=== PATIENT | male | born 1975 | race Two or more races ===

== ENCOUNTER 2019-03-25 17:50 | Emergency (ER) | payer OTHER ==
[~2019-03-25] VITALS: Ht 172.7 cm; Wt 77.1 kg
[2019-03-25] MEDS ORDERED: OXYMETAZOLINE HCL NASAL SPRAY 30 ML BOTTLE NS ONE ×2 (18:12→18:30)
--- NOTE | 2019-03-25 18:24 | NUR ---
Patient awake alert noted nose bleeding ,suctioned as needed ,Afrin adminstered continue to monitor
[2019-03-25] MEDS ORDERED: HYDROCODONE/APAP 5/325MG 1 EACH TABLET PO ONE (20:00)
[2019-03-25] MEDS ORDERED: HYDROCODONE/APAP 5/325MG 1 EACH TABLET ONE (20:08)
--- NOTE | 2019-03-25 21:30 | NUR ---
Patient discharged to home in stable condition. Written and verbal after care instructions given. Patient verbalizes understanding of instruction. Pt ambulatory with a steady gait
[2019-03-25 21:39] VITALS: BP 159/108
== END 2019-03-25 21:39 | disposition home or self-care (01) ==
LOC: ER 17:52
DX: R04.0 Epistaxis (principal)